=== PATIENT | female | born 1995 | race Two or more races ===

== ENCOUNTER 2018-04-08 11:58 | Outpatient (CLI) | payer OTHER | END 2018-04-08 12:00 | disposition home or self-care (01) | LOC: LAB 11:58 | DX: R51 Headache (principal); J20.0 Acute bronchitis due to Mycoplasma pneumoniae ==

== ENCOUNTER 2018-05-31 14:59 | Inpatient (IN) | payer OTHER ==
[~2018-05-31] VITALS: Ht 152.4 cm; Wt 1.8 kg
[2018-05-31] MEDS ORDERED: PRENATABS RX T1 EACH PO (16:39)
[2018-06-16] MEDS ORDERED: IBUPROFEN800 MG PO (07:23)
[2018-06-16] MEDS ORDERED: LABETALOL HCL200 MG PO (07:23)
[2018-06-16] MEDS ORDERED: GAS RELIEF125 MG PO (07:23)
[2018-06-16] MEDS ORDERED: SENNA8.6 MG PO (07:23)
== END 2018-06-16 11:29 | DRG 765 ==
LOC: OB/GYN 14:59 → LDR 14:59 → OB/GYN 06-02 05:07
PROVIDERS: Obstetrics & Gynecology
PROC: BY4FZZZ Ultrasonography of Third Trimester, Single Fetus (ICD-10-PCS; 2018-05-31)
PROC: 4A1HXCZ Monitoring of Products of Conception, Cardiac Rate, External Approach (ICD-10-PCS; 2018-05-31)
PROC: BU4CZZZ Ultrasonography of Uterus and Ovaries (ICD-10-PCS; 2018-05-31)
PROC: BY4FZZZ Ultrasonography of Third Trimester, Single Fetus (ICD-10-PCS; 2018-06-12)
PROC: 4A033R1 Measurement of Arterial Saturation, Peripheral, Percutaneous Approach (ICD-10-PCS; 2018-06-13)
PROC: 10D00Z1 Extraction of Products of Conception, Low, Open Approach (ICD-10-PCS; principal; 2018-06-13 10:45)
DX: O36.5930 Maternal care for other known or suspected poor fetal growth, third trimester, not applicable or unspecified (principal); O60.14X0 Preterm labor third trimester with preterm delivery third trimester, not applicable or unspecified; O13.3 Gestational [pregnancy-induced] hypertension without significant proteinuria, third trimester; Z3A.33 33 weeks gestation of pregnancy; Z37.0 Single live birth

== ENCOUNTER 2024-07-16 09:06 | Emergency (ER) | payer OTHER ==
[~2024-07-16] VITALS: Ht 149.9 cm; Wt 50.8 kg
[~2024-07-16 09:06] MED LIST: DICLOFENAC SODI50 MG PO; GAS RELIEF125 MG PO; IBUPROFEN800 MG PO; LABETALOL HCL200 MG PO; NORFLEX100MG PO; PRENATABS RX T1 EACH PO; SENNA8.6 MG PO
[2024-07-16] MEDS ORDERED: PRENA1 CHEW TA1.4 MG (09:12)
[2024-07-16 09:51] LABS: HEMOGLOBIN 12.1 g/dL (12.0-15.00); MEAN CELL VOLUME 85.1 fL (80.00-100.00); MEAN CORPUSCULAR HEMOGLOBIN 28.7 pg (27.00-32.0); MEAN CORPUSCULAR HGB CONC 33.7 g/dl (32.0-36.0); PLATELET COUNT 290 K/uL (150-450); RED BLOOD COUNT 4.23 M/uL (4.00-6.00); RED CELL DISTRIBUTION WIDTH 13.4 % (11.5-14.5)
[2024-07-16 10:23] LABS: URINE APPEARANCE Turbid; URINE BACTERIA 52.9 uL (0.0-1933); URINE BILIRRUBIN Negative (NEGATIVE); URINE BLOOD Large; URINE COLOR Yellow; URINE GLUCOSE Negative (NEGATIVE); URINE KETONE Negative (NEGATIVE); URINE LEUKOCYTE Negative; URINE NITRATE Negative; URINE PROTEIN Negative (NEGATIVE); URINE RBC 3079.9 uL (0.0-20.8); URINE UROBILINOGEN 0.2 E.U./dl; URINE WBC 4.3 uL (0.0-23.2)
== END 2024-07-16 12:28 | disposition home or self-care (01) ==
LOC: ER 09:08
PROVIDERS: General Practice
DX: O20.8 Other hemorrhage in early pregnancy (principal); O23.41 Unspecified infection of urinary tract in pregnancy, first trimester; N39.0 Urinary tract infection, site not specified; Z3A.08 8 weeks gestation of pregnancy